=== PATIENT | male | born 2000 | race Caucasian/White ===

== ENCOUNTER 2019-10-22 09:13 | Day surgery (SDC) | payer OTHER ==
[2019-10-22 10:50] VITALS: BMI 19.6
[2019-10-22 11:49] VITALS: TEMP 97.2
[2019-10-22 12:12] VITALS: BP 134/78; PULSE 76
--- NOTE | 2019-10-24 17:45 | PATH ---
Surgical Pathology Report Patient Name: EM HARRELL [facility]. Rec. #: [id number] /Age/Gender: 2000 (Age: 19) / M Account: [id number] Location: [facility] Taken: 10/22/2019 Received: 10/22/2019 Reported: 10/24/2019 Physicians: EM KIMBROUGH Specimen(s) Received A: DUODENUM B: ANTRUM C: ESOPHAGUS Clinical History Nausea and vomiting, weight loss, epigastric pain Postoperative diagnosis: Unexplained nausea and vomiting, rule out GERD Final Diagnosis A. DUODENUM, BIOPSY: DUODENAL MUCOSA WITHOUT SIGNIFICANT PATHOLOGIC FINDINGS. B. STOMACH, ANTRUM, BIOPSY: GASTRIC ANTRAL MUCOSA WITH MILD CHRONIC GASTRITIS. IMMUNOHISTOCHEMICAL STAIN FOR H. PYLORI IS NEGATIVE. C. ESOPHAGUS, BIOPSY: SQUAMOUS MUCOSA WITH CHANGES OF MILD REFLUX ESOPHAGITIS Immunohistochemical stains performed at [place], [place] ([id number]) and interpreted at [facility]. Positive and negative controls (internal if applicable) show appropriate results. Electronically Signed Poonam De Jesus M.D. Gross Description A. Received in formalin, labeled "duodenum" is a landeros, irregular portion of soft tissue measuring 0.4 cm. in greatest dimension. The specimen is submitted in toto in one cassette. B. Received in formalin, labeled "antrum biopsy" is a landeros, irregular portion of soft tissue measuring 0.5 cm. in greatest dimension. The specimen is submitted in toto in one cassette. C. Received in formalin, labeled "esophagus biopsy" are 2 landeros, irregular portions of soft tissue measuring 0.4 and 0.5 cm. in greatest dimension. The specimens are submitted in toto in one cassette. DL/10/22/2019 saudi/10/22/2019
== END 2019-10-22 12:11 | disposition home or self-care (01) ==
LOC: JASU-ENDO 09:13
PROVIDERS: ATTEND Internal Medicine Gastroenterology
PROC: 0DB68ZX Excision of Stomach, Via Natural or Artificial Opening Endoscopic, Diagnostic (ICD-10-PCS; 2019-10-22)
PROC: 0DB58ZX Excision of Esophagus, Via Natural or Artificial Opening Endoscopic, Diagnostic (ICD-10-PCS; 2019-10-22)
PROC: 0DB98ZX Excision of Duodenum, Via Natural or Artificial Opening Endoscopic, Diagnostic (ICD-10-PCS; principal; 2019-10-22 10:30)
DX: K29.50 Unspecified chronic gastritis without bleeding (principal); K21.0 Gastro-esophageal reflux disease with esophagitis
CPT/HCPCS: 88305-TC